=== PATIENT | female | born 1965 | race Caucasian/White ===

== ENCOUNTER 2017-01-14 00:53 | Inpatient (IN) | payer OTHER ==
[2017-01-14] VITALS (9 sets, daily range): BP systolic 103–119; BP diastolic 67–73; PULSE 69–90; RESP 17–20; Ht 172.7 cm; Wt 70.8 kg
[~2017-01-14] VITALS: Ht 172.7 cm; Wt 70.8 kg
[2017-01-14] MEDS ORDERED: FURO40TA4 PO (04:51)
[2017-01-14] MEDS ORDERED: SPIR100T31 PO (04:51)
[2017-01-14] MEDS ORDERED: LACT20SO2 PO (04:51)
--- NOTE | 2017-01-14 07:00 | HP ---
Date/Time of Note Date/Time of Note DATE: 01/14/17 TIME: 06:58 Assessment/Plan VTE Prophylaxis VTE Prophylaxis Intervention: SCD's Lines/Catheters IV Catheter Type (from Nrsg): Saline Lock Assessment/Plan Assessment/Plan abd pain and distention 2/2 large ascites Hep C / alcohol cirrhosis PLAN Urgent paracentesis and fluid analysis 2/2 pain Possible d/c after if analysis is negative supportive care and pain control HPI/ROS Admit Date/Time Admit Date/Time Jan 14, 2017 at 04:05 Hx of Present Illness abd pain and distention. Unclear if actual pain or just discomfort Has never had paracentesis before Diagnosed with liver cirrhosis a year ago remote hx of multisubstance abuse including IVDA, but drank alcohol and smoked heavily until diagnosis a year ago. still drinks ocassionally and now smokes a pack of cigarrettes over 2 weeks Also has Hep C and is scheduled to start treatment soon. No fever +nausea, no vomiting PMH/Family/Social Past Medical History * Hep C * Cirrhosis Social History Alcohol Use: other (was a heavy drinker, now occasionally) Smoking Status: Current every day smoker Drug Use: other (remotely) Exam/Review of Systems Vital Signs Vitals Vital Signs Date Time Temp Pulse Resp B/P Pulse Ox O2 Delivery O2 Flow Rate FiO2 01/14/17 04:30 90 01/14/17 04:00 97.8 20 103/69 92 Intake and Output 01/13/17 01/13/17 01/14/17 15:00 23:00 07:00 Intake Total 60 ml Balance 60 ml Exam Constitutional: alert, frail, oriented, other (cachectic ) Psych: nl mood/affect Head: atraumatic, normocephalic Eyes: PERRL, No icteric ENMT: mucosa pink and moist Neck: supple Respiratory: clear to auscultation, diminished breath sounds Cardiovascular: regular rate and rhythm, No murmurs/extra sounds Gastrointestinal: ascites, bowel sounds (distant), distended (++), soft, No rebound or guarding, No tender Extremities: pitting pedal edema (avis 2+ to mid leg) Procedures Procedures Platelets : 157 INR 1.28 MICHELLE ZUNIGA Jan 14, 2017 07:00
[2017-01-14] MEDS ORDERED: ONDANSETRON 4 MG INJ IV PRN (07:30)
[2017-01-14] MEDS ORDERED: HYDROCODONE/APAP (5/325) TAB PO PRN (07:30)
[2017-01-14] MEDS: FAMOTIDINE 20 MG TAB PO SCH ×2 (09:13→20:49)
[2017-01-14] MEDS: FUROSEMIDE 40 MG TAB PO SCH (09:14)
[2017-01-14] MEDS: SPIRONOLACTONE 50 MG TAB PO SCH (09:14)
[2017-01-14] MEDS: LACTULOSE 30ML CUP PO SCH ×4 (09:14→20:49)
[2017-01-14 09:21] LABS: INR 1.28; PROTIME 16.1 Sec (12.2-14.2); PT RATIO 1.3
[2017-01-14 09:22] LABS: PARTIAL THROMBOPLASTIN TIME 32.9 Sec (25.0-35.0)
[2017-01-14 11:05] LABS: CHOL/HDL RATIO 3.7 RATIO
[2017-01-14] MEDS: morphine 2 MG INJ IV PRN (11:15)
[2017-01-14 12:39] LABS: BASOPHILS % 0.7 % (0.0-2.0); EOSINOPHILS # 0.1 10^3/ul (0.0-0.5); EOSINOPHILS % 2.5 % (0.0-7.0); HEMATOCRIT 41.2 % (37.0-47.0); HEMOGLOBIN 13.9 g/dl (12.0-16.0); LYMPHOCYTES % 18.3 % (15.0-51.0); MEAN CORPUSCULAR HEMOGLOBIN 31.4 pg (29.0-33.0); MEAN CORPUSCULAR HGB CONC 33.7 g/dl (32.0-37.0); MEAN CORPUSCULAR VOLUME 93.2 fl (82.0-101.0); MEAN PLATELET VOLUME 10.8 fl (7.4-10.4); MONOCYTE # 0.7 10^3/ul (0.3-0.9); MONOCYTES % 11.5 % (0.0-11.0); PLATELET COUNT 150 10^3/UL (140-415); RED BLOOD COUNT 4.42 10^6/ul (4.20-5.40); RED CELL DISTRIBUTION WIDTH 16.5 % (11.5-14.5); WHITE BLOOD COUNT 5.6 10^3/ul (4.8-10.8)
[2017-01-14] MEDS ORDERED: LIDOCAINE 1% (MPF) 5 ML VIAL ONE (16:11)
--- NOTE | 2017-01-14 16:44 | RADRPT ---
PROCEDURE: Ultrasound guided paracentesis. CLINICAL INDICATION: Ascites and shortness of breath. COMPARISON: No prior studies are available for comparison. TECHNIQUE: The risks, benefits, and alternatives were explained to the patient and/or the patient's family, inc luding but not limited to bleeding, infection, pain, visceral or vascular damage, shock, and . The patient and/or the patient's family understood the risks and the alternatives and wished to pro ceed with the procedure. Informed written consent was obtained. A procedural time out was performed . The patient's name, date of , and procedure to be performed were verified. Utilizing ultrasound guidance, optimal location for entry to the peritoneal cavity was ascertained. The overlying skin was prepped and draped in the usual sterile fashion. Approximately 10 ml of 1% Xylocaine was injected locally for pain control. Using ultrasound guidance, an 8 Vincentian catheter wa s introduced into the peritoneal cavity in the right lower quadrant without difficulty. FINDINGS: Initial images demonstrate ascites. Approximately 3.9 liters of serous fluid was aspirated and sent for laboratory analysis. The patient tolerated the procedure well without complication. IMPRESSION: 1. Successful ultrasound-guided paracentesis. RPTAT: QQ .Carlitos Calle MD, Date Time Electronically viewed and signed by .Carlitos Calle MD, on 01/14/2017 16:44 .R/
[2017-01-14 19:51] LABS: FLD MN% 84.8 %; FLD PMN% 15.2 %; FLD RBC 0 /uL; FLD WBC 92 /cmm
[2017-01-14 20:39] LABS: FLD CLARITY CLEAR; FLD COLOR YELLOW; FLD TYPE ASCITES; PATH REVIEW? NO
[2017-01-15] VITALS (8 sets, daily range): BP systolic 107–133; BP diastolic 57–72; PULSE 71–78; RESP 18–19
[2017-01-15 08:15] LABS: BASOPHILS % 0.4 % (0.0-2.0); EOSINOPHILS # 0.2 10^3/ul (0.0-0.5); EOSINOPHILS % 3.1 % (0.0-7.0); HEMATOCRIT 36.8 % (37.0-47.0); HEMOGLOBIN 12.3 g/dl (12.0-16.0); LYMPHOCYTES # 0.8 10^3/ul (0.8-2.9); MEAN CORPUSCULAR HEMOGLOBIN 30.1 pg (29.0-33.0); MEAN CORPUSCULAR HGB CONC 33.4 g/dl (32.0-37.0); MEAN CORPUSCULAR VOLUME 90.2 fl (82.0-101.0); MEAN PLATELET VOLUME 10.8 fl (7.4-10.4); MONOCYTE # 0.7 10^3/ul (0.3-0.9); NEUTROPHILS % 67.3 % (39.0-77.0); PLATELET COUNT 123 10^3/UL (140-415); RED BLOOD COUNT 4.08 10^6/ul (4.20-5.40); RED CELL DISTRIBUTION WIDTH 16.1 % (11.5-14.5); WHITE BLOOD COUNT 5.1 10^3/ul (4.8-10.8)
[2017-01-15] MEDS: FAMOTIDINE 20 MG TAB PO SCH (08:32)
[2017-01-15] MEDS: LACTULOSE 30ML CUP PO SCH ×2 (08:32→12:26)
[2017-01-15] MEDS: SPIRONOLACTONE 50 MG TAB PO SCH (08:33)
[2017-01-15] MEDS: FUROSEMIDE 40 MG TAB PO SCH (08:33)
[2017-01-15 08:36] LABS: ALBUMIN 2.2 g/dl (3.3-4.9); ALBUMIN/GLOBULIN RATIO 0.66; BILIRUBIN,INDIRECT 0.9 mg/dl (0-1.1); BILIRUBIN,TOTAL 0.9 mg/dl (0.2-1.3); CALCIUM 8.1 mg/dl (8.4-10.2); CREATININE 1.11 mg/dl (0.44-1.00); POTASSIUM 4.5 mmol/L (3.5-5.1); TOTAL PROTEIN 5.5 g/dl (6.1-8.1)
[2017-01-15 09:14] LABS: MAGNESIUM 1.7 mg/dl (1.7-2.5); PHOSPHORUS 3.3 mg/dl (2.5-4.9)
[2017-01-15] MEDS: morphine 2 MG INJ IV PRN ×2 (09:29→13:35)
--- NOTE | 2017-01-15 10:38 | PDOCDIS ---
Discharge Instructions DIAGNOSIS Discharge Diagnosis Ascites. Status post paracentesis. CONDITION Patient Condition: Stable HOME CARE INSTRUCTIONS: Special Diet: 2GM NA OTHER ORDERS: Other Orders: 1. Resume home medications. 2. Take a low-sodium diet. 3. Activities as tolerated. 4. Follow-up with your primary care physician in 1 week. 5. Please go to the nearest emergency room if you have significant abdominal pain, significant shortness of breath, or any other unusual signs or symptoms. LATISHA MENDES NP Jan 15, 2017 10:38
--- NOTE | 2017-01-15 10:47 | DS ---
Date/Time of Note Date/Time of Note DATE: 01/15/17 TIME: 10:45 Discharge Summary Admission/Discharge Info Admit Date/Time Jan 14, 2017 at 04:05 Discharge Date/Time Discharge Diagnosis 1. Ascites. Status post paracentesis. 2. Alcoholic liver cirrhosis. 3. Hepatitis C. 4. Nicotine use. Patient Condition: Stable Procedures Ultrasound-Guided Paracentesis IMPRESSION: 1. Successful ultrasound-guided paracentesis with drainage of 3.9 L of fluid. Hx of Present Illness This is a 51-year-old female who was diagnosed with alcoholic liver cirrhosis approximately an year ago came to the emergency room with chief complaint of abdominal pain and distention. The patient denied any prior paracentesis in the past. The patient initially went to an outside ER and was transferred to [facility] because of insurance reasons. Patient denied any nausea or vomiting. Hospital Course The patient was admitted to inpatient setting. The patient underwent a paracentesis with drainage of 3.9 L of serous fluid. The patient's fluid analysis did not show any evidence of any peritonitis. The patient had no underlying leukocytosis or febrile illness. The patient was maintained on her routine medications including diuretics and aldosterone antagonists along with lactulose. Patient had elevated ammonia levels but not significant enough to cause any underlying encephalopathy. The patient's abdominal pain has resolved after paracentesis. The patient is stable for outpatient management. The patient will be discharged home to be followed up with her primary care physician. Discharge Instructions 1. Resume home medications. 2. Take a low-sodium diet. 3. Activities as tolerated. 4. Follow-up with your primary care physician in 1 week. 5. Please go to the nearest emergency room if you have significant abdominal pain, significant shortness of breath, or any other unusual signs or symptoms. The patient verbalized understanding of her discharge instructions. The case and management of this patient was fully discussed with Dr. Estrella. Home Meds Reported Medications Lactulose* (Lactulose*) 20 Gm/30 Ml Solution, 20 GM PO QID, ML 01/14/17 Spironolactone* (Spironolactone*) 100 Mg Tablet, 100 MG PO DAILY, TAB 01/14/17 Furosemide* (Furosemide*) 40 Mg Tablet, 40 MG PO DAILY, TAB 01/14/17 Follow-up Plan Follow-up with your primary care physician 1 week. Primary Care Provider Janki Ramos Time spent on discharge: > 30 minutes Pending Labs Laboratory Tests Test 01/14/17 16:00 01/15/17 07:34 01/15/17 07:35 Pathologist Review (Hematology) NO Body Fluid Type ASCITES Body Fluid Volume 1100.0ml Body Fluid Color YELLOW Body Fluid Appearance CLEAR Body Fluid WBC 92/cmm Body Fluid RBC (Auto) 0/uL Body Fluid Polynuclear WBCs (%) 15.2% Body Fluid Mononuclear Cells % Auto 84.8% White Blood Count 5.110^3/ul (4.8-10.8) Red Blood Count 4.0810^6/ul (4.20-5.40) Hemoglobin 12.3g/dl (12.0-16.0) Hematocrit 36.8% (37.0-47.0) Mean Corpuscular Volume 90.2fl (82.0-101.0) Mean Corpuscular Hemoglobin 30.1pg (29.0-33.0) Mean Corpuscular Hemoglobin Concent 33.4g/dl (32.0-37.0) Red Cell Distribution Width 16.1% (11.5-14.5) Platelet Count 46668^3/UL (140-415) Mean Platelet Volume 10.8fl (7.4-10.4) Neutrophils % 67.3% (39.0-77.0) Lymphocytes % 15.0% (15.0-51.0) Monocytes % 14.0% (0.0-11.0) Eosinophils % 3.1% (0.0-7.0) Basophils % 0.4% (0.0-2.0) Nucleated Red Blood Cells % 0.0/100WBC (0.0-0.0) Neutrophils # (Manual) 310^3/ul (1.7-7.5) Lymphocytes # 0.810^3/ul (0.8-2.9) Monocytes # 0.710^3/ul (0.3-0.9) Eosinophils # 0.210^3/ul (0.0-0.5) Basophils # 0.010^3/ul (0.0-0.1) Nucleated Red Blood Cells # 0.010^3/ul (0.0-0.0) Sodium Level 136mmol/L (135-144) Potassium Level 4.5mmol/L (3.5-5.1) Chloride Level 96mmol/L (97-110) Carbon Dioxide Level 28mmol/L (21-31) Anion Gap 17 (8-16) Blood Urea Nitrogen 19mg/dl (7-20) Creatinine 1.11mg/dl (0.44-1.00) Glucose Level 94mg/dl (70-220) Calcium Level 8.1mg/dl (8.4-10.2) Phosphorus Level 3.3mg/dl (2.5-4.9) Magnesium Level 1.7mg/dl (1.7-2.5) Total Bilirubin 0.9mg/dl (0.2-1.3) Direct Bilirubin 0.00mg/dl (0.00-0.20) Indirect Bilirubin 0.9mg/dl (0-1.1) Aspartate Amino Transf (AST/SGOT) 42IU/L (15-46) Alanine Aminotransferase (ALT/SGPT) 44IU/L (13-69) Alkaline Phosphatase 108IU/L (42-121) Ammonia 57umol/l (9-30) Total Protein 5.5g/dl (6.1-8.1) Albumin 2.2g/dl (3.3-4.9) Globulin 3.30g/dl (1.3-3.2) Albumin/Globulin Ratio 0.66 Lipase 265U/L (23-300) LATISHA MENDES NP Jan 15, 2017 10:47
== END 2017-01-15 14:45 | disposition home or self-care (01) | DRG 434 ==
LOC: MS4 04:05
PROVIDERS: ADMIT Family Medicine; ATTEND Family Medicine
PROC: 0W9G3ZZ Drainage of Peritoneal Cavity, Percutaneous Approach (ICD-10-PCS; principal; 2017-01-14)
DX: K70.31 Alcoholic cirrhosis of liver with ascites (principal); B19.20 Unspecified viral hepatitis C without hepatic coma; F17.200 Nicotine dependence, unspecified, uncomplicated
CPT/HCPCS: 80053; 80061; 82140; 83036; 83690; 83735; 84100; 84443; 85025; 85610; 85730; 89051; J2270

== ENCOUNTER 2017-01-27 19:34 | Observation (INO) | payer OTHER ==
[~2017-01-27] VITALS: Ht 172.7 cm; Wt 66.4 kg
[~2017-01-27 19:34] MED LIST: FURO40TA4 PO; LACT20SO2 PO; SPIR100T31 PO
[2017-01-27] MEDS ORDERED: ONDANSETRON 4 MG INJ IV STA (23:47)
[2017-01-27] MEDS ORDERED: morphine 4 MG/ML VIAL IV STA (23:47)
[2017-01-28] VITALS (11 sets, daily range): BP systolic 97–113; BP diastolic 64–76; PULSE 74–93; RESP 16–20; TEMP 98.5; Ht 172.7 cm; Wt 66.4 kg
[2017-01-28 00:01] LABS: BASOPHILS % 0.5 % (0.0-2.0); EOSINOPHILS % 0.3 % (0.0-7.0); HEMATOCRIT 43.6 % (37.0-47.0); LYMPHOCYTES # 1.1 10^3/ul (0.8-2.9); LYMPHOCYTES % 15.2 % (15.0-51.0); MEAN CORPUSCULAR HEMOGLOBIN 31.3 pg (29.0-33.0); MEAN CORPUSCULAR HGB CONC 34.4 g/dl (32.0-37.0); MEAN PLATELET VOLUME 10.3 fl (7.4-10.4); MONOCYTE # 0.7 10^3/ul (0.3-0.9); MONOCYTES % 9.8 % (0.0-11.0); NEUTROPHILS % 73.7 % (39.0-77.0); PLATELET COUNT 173 10^3/UL (140-415); RED BLOOD COUNT 4.79 10^6/ul (4.20-5.40); RED CELL DISTRIBUTION WIDTH 16.1 % (11.5-14.5); WHITE BLOOD COUNT 7.4 10^3/ul (4.8-10.8)
[2017-01-28 00:21] LABS: ALBUMIN 3.3 g/dl (3.3-4.9); ALBUMIN/GLOBULIN RATIO 0.78; BILIRUBIN,INDIRECT 2.4 mg/dl (0-1.1); BILIRUBIN,TOTAL 2.4 mg/dl (0.2-1.3); CALCIUM 8.6 mg/dl (8.4-10.2); CREATININE 0.88 mg/dl (0.44-1.00); POTASSIUM 3.8 mmol/L (3.5-5.1); TOTAL PROTEIN 7.5 g/dl (6.1-8.1)
[2017-01-28 00:36] LABS: INR 1.18; PARTIAL THROMBOPLASTIN TIME 31.8 Sec (25.0-35.0); PROTIME 15.1 Sec (12.2-14.2); PT RATIO 1.2
--- NOTE | 2017-01-28 01:49 | ERA ---
ER Documentation Chief Complaint Date/Time DATE: 01/28/17 TIME: 01:48 Chief Complaint Pt reports she needs paracentisis, drained 10 days ago HPI This is a 51-year-old female who comes in with complaints of severe abdominal swelling. Patient history of cirrhosis. Last drained 10 days ago. States she sees starting him mildly short of breath. ROS All systems reviewed and are negative except as per history of present illness. Medications Home Meds Reported Medications Lactulose* (Lactulose*) 20 Gm/30 Ml Solution, 20 GM PO QID, ML 01/14/17 Spironolactone* (Spironolactone*) 100 Mg Tablet, 100 MG PO DAILY, TAB 01/14/17 Furosemide* (Furosemide*) 40 Mg Tablet, 40 MG PO DAILY, TAB 01/14/17 Allergies Allergies: Coded Allergies: No Known Allergy (Unverified , 01/14/17) PMhx/Soc Anesthesia Reaction: No Hx Neurological Disorder: No Hx Respiratory Disorders: No Hx Cardiac Disorders: No Hx Psychiatric Problems: Yes (Bipolar) Hx Miscellaneous Medical Probl: Yes (Liver cirrhosis, Hepatitis C) Hx Alcohol Use: Yes ([employer] ice tea. (gin, vodka, rum).) Hx Substance Use: Yes Hx Tobacco Use: Yes Smoking Status: Current every day smoker Physical Exam Vitals Vital Signs Date Time Temp Pulse Resp B/P Pulse Ox O2 Delivery O2 Flow Rate FiO2 01/28/17 00:03 98.5 91 18 142/79 97 Room Air 01/27/17 19:38 98.5 108 18 135/84 97 Physical Exam Const: [] Head: Atraumatic Eyes: Normal Conjunctiva ENT: Normal External Ears, Nose and Mouth. Neck: Full range of motion..~ No meningismus. Resp: Clear to auscultation bilaterally Cardio: Regular rate and rhythm, no murmurs Abd: Soft, non tender, non distended. Normal bowel sounds Skin: No petechiae or rashes Back: No midline or flank tenderness Ext: No cyanosis, or edema Neur: Awake and alert Psych: Normal Mood and Affect Result Diagram: 01/27/17 5929 01/27/17 9989 Results 24 hrs Laboratory Tests Test 01/27/17 23:49 White Blood Count 7.410^3/ul Red Blood Count 4.7910^6/ul Hemoglobin 15.0g/dl Hematocrit 43.6% Mean Corpuscular Volume 91.0fl Mean Corpuscular Hemoglobin 31.3pg Mean Corpuscular Hemoglobin Concent 34.4g/dl Red Cell Distribution Width 16.1% Platelet Count 36296^3/UL Mean Platelet Volume 10.3fl Neutrophils % 73.7% Lymphocytes % 15.2% Monocytes % 9.8% Eosinophils % 0.3% Basophils % 0.5% Nucleated Red Blood Cells % 0.0/100WBC Neutrophils # (Manual) 5.410^3/ul Lymphocytes # 1.110^3/ul Monocytes # 0.710^3/ul Eosinophils # 0.010^3/ul Basophils # 0.010^3/ul Nucleated Red Blood Cells # 0.010^3/ul Prothrombin Time 15.1Sec Prothrombin Time Ratio 1.2 INR International Normalized Ratio 1.18 Activated Partial Thromboplast Time 31.8Sec Sodium Level 132mmol/L Potassium Level 3.8mmol/L Chloride Level 95mmol/L Carbon Dioxide Level 28mmol/L Anion Gap 13 Blood Urea Nitrogen 13mg/dl Creatinine 0.88mg/dl Glucose Level 90mg/dl Calcium Level 8.6mg/dl Total Bilirubin 2.4mg/dl Direct Bilirubin 0.00mg/dl Indirect Bilirubin 2.4mg/dl Aspartate Amino Transf (AST/SGOT) 65IU/L Alanine Aminotransferase (ALT/SGPT) 52IU/L Alkaline Phosphatase 179IU/L Total Protein 7.5g/dl Albumin 3.3g/dl Globulin 4.20g/dl Albumin/Globulin Ratio 0.78 Lipase 158U/L Current Medications Medications (Trade) Dose Ordered Sig/Charles Route PRN Reason Start Time Stop Time Status Last Admin Dose Admin Morphine Sulfate (morphine) 4 mg ONCE STAT IV 01/27/17 23:47 01/27/17 23:48 DC 01/27/17 23:57 Ondansetron HCl (Zofran Inj) 4 mg ONCE STAT IV 01/27/17 23:47 01/27/17 23:48 DC 01/27/17 23:59 Procedures/MDM Medical decision-making: Patient comes in with tense ascites. Patient will be admitted for paracentesis and evaluation and management Departure Diagnosis: Primary Impression: Ascites Qualified Code: K70.31 - Ascites due to alcoholic cirrhosis Condition: Serious AGNES NASH Jan 28, 2017 01:49
[2017-01-28] MEDS ORDERED: NACL 0.9% 3 ML SYG IV SCH (02:30)
[2017-01-28] MEDS ORDERED: ONDANSETRON 4 MG INJ IV PRN (02:30)
[2017-01-28] MEDS ORDERED: ACETAMINOPHEN 325 MG TAB PO PRN (02:30)
[2017-01-28] MEDS ORDERED: DOCUSATE SODIUM 100 MG CAP PO PRN (02:30)
[2017-01-28] MEDS ORDERED: BISACODYL (EC) 5 MG TAB PO PRN (02:30)
[2017-01-28] MEDS: FUROSEMIDE 40 MG TAB PO SCH (06:00)
[2017-01-28] MEDS: morphine 2 MG INJ IV PRN (07:40)
[2017-01-28] MEDS: LACTULOSE 30ML CUP PO SCH ×4 (08:27→20:49)
[2017-01-28] MEDS: FAMOTIDINE 20 MG TAB PO SCH ×2 (08:27→20:49)
[2017-01-28] MEDS: SPIRONOLACTONE 50 MG TAB PO SCH (09:00)
--- NOTE | 2017-01-28 09:53 | HP ---
Date/Time of Note Date/Time of Note DATE: 01/28/17 TIME: 09:46 Assessment/Plan VTE Prophylaxis VTE Prophylaxis Intervention: SCD's Lines/Catheters IV [facility] Saline Lock Assessment/Plan Chief Complaint/Hosp Course This is a 51-year-old female being admitted to the [facility] floor for: #1 symptomatic ascites: Last paracentesis performed approximately 2 weeks ago. Low suspicion for SBP as normal white blood cell count and no fevers. Will schedule ultrasound paracentesis via IR. #2 liver cirrhosis: We will check ammonia level. At the current time patient does not appear to be in any acute decompensation. Will continue lactulose Lasix and spironolactone. Will check blood alcohol level. #3 hepatitis C: Patient states that she is to be starting treatment as an outpatient. #4 DVT GI prophylaxis: SCDs, acid destinee Further treatment strategy will be implemented as per the course Problems: HPI/ROS Admit Date/Time Admit Date/Time Jan 28, 2017 at 01:40 Hx of Present Illness Chief complaint: Abdominal fullness and fluid retention This is a 51 oh female who comes in today complaining of abdominal pain and fullness and fluid retention. Patient states that she last had a tap approximately 2 weeks ago. She states that she has a history of cirrhosis and hepatitis C. She denies any fevers. Allergies: NKDA Medications: See LISSETTE ARMAS Const: As per HPI Eyes : No pain discharge or redness or change in visual acuity ENT: No pain, sore throat, congestion, congestion, dysphagia or discharge Respiratory: No shortness of breath, cough, sputum, wheezing, or pleuritic pain Cardiovascular: No chest pain, palpitation, PND, or edema GI : As per HPI Genitourinary: No dysuria, hematuria, flank pain , discharge or CVA tenderness Musculoskeletal: No joint pain, back pain, neck pain, restricted range of motion in neck or joints Skin: No rash, bruising or hives Neuro: No headache, dizziness, syncope, seizure, focal weakness Endocrine: No polyuria, polydipsia, temperature intolerance Psych: No hallucination, depression, anxiety or suicidal ideation PMH/Family/Social Past Medical History Hepatitis C, liver cirrhosis Past Surgical History Past Surgical Hx: no surgical history Family History Significant Family History: no pertinent family hx Social History still drinks ocassionally, but less from when she did a year ago prior to finding out about her cirrhosis. and now smokes a pack of cigarrettes over 2 weeks Smoking Status: Current every day smoker Exam/Review of Systems Vital Signs Vitals Vital Signs Date Time Temp Pulse Resp B/P Pulse Ox O2 Delivery O2 Flow Rate FiO2 01/28/17 07:34 97.8 84 16 98/70 95 01/28/17 05:50 Room Air Exam Exam General: Patient is a well-developed female lying in bed in no acute distress. Patient is alert and oriented answering questions appropriately. HEENT: Atraumatic, normocephalic. The pupils are equal, round and reactive. Extraocular motor are intact Neck: Supple with full range of motion. No rigidity or meningismus Chest: Nontender Lungs: Clear to auscultation bilaterally no crackles rales or wheezing Heart: Normal S1-S2, Regular rhythm and rate. No murmur, S3, or S4 Abdomen: Distended, positive fluid wave, mild tenderness to palpation. Extremities: Normal to inspection, no edema no cyanosis Neurologic: Normal mental status, speech normal, cranial nerves II through XII are intact, motor and sensory are intact, no focal weakness, she does not appear confused, no asterixis. Labs Result Diagram: 01/27/17 2349 01/27/17 2349 Medications Medications Current Medications Ondansetron HCl (Zofran Inj) 4 mg Q6H PRN IV NAUSEA AND/OR VOMITING; Start 01/28 at 02:30 Acetaminophen (Tylenol Tab) 650 mg Q6H PRN PO PAIN LEVEL 1-3 OR FEVER; Start at 02:30 Morphine Sulfate (morphine) 2 mg Q4H PRN IV SEVERE PAIN LEVEL 7-10 Last administered on 01/28/17 07:40; Admin Dose 2 MG; Start 01/28/17 at 02:30 Docusate Sodium (Colace) 100 mg Q12H PRN PO CONSTIPATION; Start 01/28/17 at 02: 30 Bisacodyl (Dulcolax) 5 mg DAILY PRN PO CONSTIPATION; Start 01/28/17 at 02:30 Famotidine (Pepcid) 20 mg Q12 PO Last administered on 01/28/17 08:27; Admin Dose 20 MG; Start 01/28/17 at 09:00 Furosemide (Lasix) 40 mg DAILY@06 PO ; Start 01/28/17 at 06:00 Lactulose (Enulose) 20 gm QID PO Last administered on 01/28/17t 08:27; Admin Dose 20 GM; Start 01/28/17 at 09:00 Spironolactone (Aldactone) 100 mg DAILY PO ; Start 01/28/17 at 09:00 LIZ BERRY Jan 28, 2017 09:53
[2017-01-28] MEDS ORDERED: LIDOCAINE 1% (MPF) 5 ML VIAL ONE (10:58)
--- NOTE | 2017-01-28 11:27 | RADRPT ---
PROCEDURE: Ultrasound guided paracentesis CLINICAL INDICATION: Ascites TECHNIQUE: Risks benefits and alternatives of the procedure were explained to the patient. Inform ed written consent was obtained. A time out was performed. Informed written consent was obtained p rior to beginning the procedure. Preliminary floor covering printer ultrasound of the abdomen was performed. Fluid was identified in the lower quadrant. The overlying skin of the right lower quadrant was prepped an d draped in the usual sterile fashion. 5 cc of lidocaine was injected locally for pain control. Und er ultrasound guidance, a skinny 5-[place] Yueh catheter was introduced into the peritoneal cavity. F luid was obtained without difficulty. The fluid was discarded. The patient tolerated procedure well without complication. COMPARISON: None FINDINGS: Approximately 4700 cc of clear light yellow fluid was obtained. The fluid was not sent to the labor atory for evaluation. IMPRESSION: Successful ultrasound-guided therapeutic paracentesis. RPTAT: QQ Physician Edvin Date Time Electronically viewed and signed by Physician Edvin on 01/28/2017 11:26 JOANNA/
[2017-01-28 14:25] LABS: BASOPHILS % 0.4 % (0.0-2.0); EOSINOPHILS # 0.1 10^3/ul (0.0-0.5); EOSINOPHILS % 2.7 % (0.0-7.0); LYMPHOCYTES # 0.7 10^3/ul (0.8-2.9); LYMPHOCYTES % 13.3 % (15.0-51.0); MEAN CORPUSCULAR HEMOGLOBIN 31.3 pg (29.0-33.0); MEAN CORPUSCULAR HGB CONC 34.2 g/dl (32.0-37.0); MEAN CORPUSCULAR VOLUME 91.6 fl (82.0-101.0); MEAN PLATELET VOLUME 10.2 fl (7.4-10.4); MONOCYTE # 0.7 10^3/ul (0.3-0.9); MONOCYTES % 13.3 % (0.0-11.0); NEUTROPHILS % 69.9 % (39.0-77.0); PLATELET COUNT 134 10^3/UL (140-415); RED BLOOD COUNT 4.15 10^6/ul (4.20-5.40); RED CELL DISTRIBUTION WIDTH 16.1 % (11.5-14.5); WHITE BLOOD COUNT 5.2 10^3/ul (4.8-10.8)
[2017-01-28 14:47] LABS: CHOL/HDL RATIO 3.5 RATIO
[2017-01-28 14:48] LABS: ALBUMIN 2.5 g/dl (3.3-4.9); ALBUMIN/GLOBULIN RATIO 0.73; BILIRUBIN,INDIRECT 1.5 mg/dl (0-1.1); BILIRUBIN,TOTAL 1.5 mg/dl (0.2-1.3); CALCIUM 7.9 mg/dl (8.4-10.2); CREATININE 0.82 mg/dl (0.44-1.00); POTASSIUM 3.8 mmol/L (3.5-5.1); TOTAL PROTEIN 5.9 g/dl (6.1-8.1)
[2017-01-29 02:00] VITALS: BP 108/54; RESP 18
[2017-01-29 05:01] VITALS: BP 105/69; PULSE 85
[2017-01-29] MEDS: FUROSEMIDE 40 MG TAB PO SCH (05:03)
[2017-01-29 06:08] LABS: FREE T3 3.56 pg/ml (2.77-5.27)
[2017-01-29 06:21] LABS: TRIIODOTHYRONINE 0.77 ng/ml (0.97-1.69)
[2017-01-29 07:57] VITALS: BP 93/63; RESP 20
[2017-01-29] MEDS: LACTULOSE 30ML CUP PO SCH ×3 (09:59→18:36)
[2017-01-29] MEDS: SPIRONOLACTONE 50 MG TAB PO SCH (10:00)
[2017-01-29] MEDS: FAMOTIDINE 20 MG TAB PO SCH (10:00)
[2017-01-29 10:10] LABS: CALCIUM 7.8 mg/dl (8.4-10.2); CREATININE 0.78 mg/dl (0.44-1.00); POTASSIUM 3.9 mmol/L (3.5-5.1)
--- NOTE | 2017-01-29 10:24 | PDOCDIS ---
Discharge Instructions CONDITION Patient Condition: Stable HOME CARE INSTRUCTIONS: Diet Instructions: 2gm Na FOLLOW UP/APPOINTMENTS Follow-up Plan 1.Follow up with primary care physician in 1 week-needs thyroid function test to be repeated in 2-4 weeks. If you don't have one please let someone know, we can give you resources that may help you pick one. You may also call your insurance company to assign one to you. Review your medication list with your nurse before leaving and if you need new prescriptions please let your nurse know. I may have made changes to your home medications or given you new prescriptions, please let your primary doctor know as well. Stay compliant with your medications and report any side effects to your PCP or pharmacist. Return to the ER if you have any concerns and cannot reach your doctors or call your insurance company, they usually have a nurse that can help you. 2. Call 911 or go to the nearest emergency room if experiencing loss of consciousness, dizziness, chest pain, shortness of breath, vomiting/abdominal pain, speech difficulties, motor weakness or any unusual symptoms. VARSHA DANIELS NP Jan 29, 2017 10:24
[2017-01-29] MEDS ORDERED: LACT20SO2 PO (10:27)
[2017-01-29] MEDS: morphine 2 MG INJ IV PRN ×2 (12:54→18:39)
--- NOTE | 2017-01-29 14:38 | DS ---
Date/Time of Note Date/Time of Note DATE: 01/29/17 TIME: 14:36 Discharge Summary Admission/Discharge Info Admit Date/Time Jan 28, 2017 at 01:40 Discharge Date/Time Discharge Diagnosis Liver cirrhosis ascites. Status post paracentesis. Hepatitis C-start treatment as outpatient with Dilutional hyponatremia. Stable Elevated TSH and normal T4. Needs repeat labs in 2 weeks. Patient Condition: Stable Procedures 01/28/2017. Ultrasound-guided paracentesis. Removal of 4700 clear yellow fluids. Hospital Course This is a 51-year-old female with a past medical history of hepatitis C for which she is to be started on treatment as outpatient, liver cirrhosis, ascites with paracentesis in the past, who presented to the emergency room with worsening abdominal pain with distention. Patient also had mildly mild hyponatremia on presentation. Patient was admitted for observation. On 01/28/2017, patient had undergone successful ultrasound-guided therapeutic paracentesis with removal of 4700 mL of light yellow fluid. Patient tolerated procedure well. Postoperatively, she was started on postprocedure, she was started on a 2 g sodium diet which she was able to tolerate. She was continued on her home medication for underlying liver disease. There is no further inpatient workup indicated at this time. Patient is feeling back to baseline. Sodium level remained at baseline. There is no further abdominal pain. Distention also improved. Disposition: Patient will be discharged home with outpatient follow-up. Patient was instructed to continue home medication. I also recommended to decrease the dose of lactulose which she takes at home as her ammonia levels are perfectly normal and there is no encephalopathy. She was also noted with elevated TSH with normal T4 level. She was instructed to repeat her thyroid function test in 2 weeks as outpatient. Patient verbalized discharge instructions. Approximately 60 minutes was spent in coordinating the discharge of this patient. Patient was seen in collaboration with . Home Meds Active Scripts Lactulose* (Lactulose*) 20 Gm/30 Ml Solution, 20 GM PO BID, #60 ML Prov:VARSHA DANIELS V. FUNERAL DIRECTOR 01/29/17 Reported Medications Spironolactone* (Spironolactone*) 100 Mg Tablet, 100 MG PO DAILY, TAB 01/14/17 Furosemide* (Furosemide*) 40 Mg Tablet, 40 MG PO DAILY, TAB 01/14/17 Follow-up Plan HOME CARE INSTRUCTIONS: Diet Instructions: 2gm Na FOLLOW UP/APPOINTMENTS Follow-up Plan 1.Follow up with primary care physician in 1 week-needs thyroid function test to be repeated in 2-4 weeks. If you don't have one please let someone know, we can give you resources that may help you pick one. You may also call your insurance company to assign one to you. Review your medication list with your nurse before leaving and if you need new prescriptions please let your nurse know. I may have made changes to your home medications or given you new prescriptions, please let your primary doctor know as well. Stay compliant with your medications and report any side effects to your PCP or pharmacist. Return to the ER if you have any concerns and cannot reach your doctors or call your insurance company, they usually have a nurse that can help you. 2. Call 911 or go to the nearest emergency room if experiencing loss of consciousness, dizziness, chest pain, shortness of breath, vomiting/abdominal pain, speech difficulties, motor weakness or any unusual symptoms. Primary Care Provider Janki Ramos Pending Labs Laboratory Tests Test 01/29/17 04:59 Sodium Level 130mmol/L (135-144) Potassium Level 3.9mmol/L (3.5-5.1) Chloride Level 99mmol/L (97-110) Carbon Dioxide Level 26mmol/L (21-31) Anion Gap 9 (8-16) Blood Urea Nitrogen 13mg/dl (7-20) Creatinine 0.78mg/dl (0.44-1.00) Glucose Level 99mg/dl (70-220) Calcium Level 7.8mg/dl (8.4-10.2) Free Thyroxine 1.49ng/dl (0.64-1.79) Thyroxine (T4) 9.8ug/dl (5.5-11.0) Free Triiodothyronine (T3) pg/mL 3.56pg/ml (2.77-5.27) Total Triiodothyronine 0.77ng/ml (0.97-1.69) VARSHA DANIELS NP Jan 29, 2017 14:38
[2017-01-29 14:44] VITALS: BP 111/71; RESP 18
== END 2017-01-29 20:53 | disposition home or self-care (01) ==
LOC: E/R 19:34 → MS1 01-28 01:40
PROVIDERS: ADMIT Family Medicine; ATTEND Family Medicine
DX: K70.31 Alcoholic cirrhosis of liver with ascites (principal); B19.20 Unspecified viral hepatitis C without hepatic coma; E87.1 Hypo-osmolality and hyponatremia; F17.200 Nicotine dependence, unspecified, uncomplicated
CPT/HCPCS: 36415; 49083; 80048; 80053; 80061; 80306; 82140; 83036; 83690; 83735; 84436; 84439; 84443; 84480; 84481; 85025; 85610; 85730; 96374; 96375; 96376; J2270; J2405; Z7500; Z7502; Z7610; G0378

== ENCOUNTER 2017-02-05 14:22 | Emergency (ER) | payer OTHER ==
[~2017-02-05] VITALS: Ht 170.2 cm; Wt 68.0 kg
[2017-02-05 14:48] VITALS: Ht 170.2 cm; Wt 68.0 kg
[2017-02-05 20:44] VITALS: BP 135/81; PULSE 89; RESP 19; TEMP 98
--- NOTE | 2017-02-05 22:07 | ERA ---
ER Documentation Chief Complaint Date/Time DATE: 02/05/17 TIME: 22:05 Chief Complaint ABDOMINAL DISTENTION - FORM PARACENTESIS HPI The patient is a 51-year-old female, presenting with recurrent abdominal distention and requesting abdominal paracentesis. She had abdominal paracentesis on December 25, 2016 and again on January 29, 2017 due to cirrhosis. She denies fever, chills, neck pain, chest pain, abdominal pain, vomiting, complains of chronic bilateral lower extremity edema. She denies fever smokes socially, used to drink until February 2060 Past medical history: Bipolar disorder, cirrhosis, hepatitis C Past surgical history: None ROS All systems reviewed and are negative except as per history of present illness. Medications Home Meds Active Scripts Lactulose* (Lactulose*) 20 Gm/30 Ml Solution, 20 GM PO BID, #60 ML Prov:DANIELSVARSHA V. HISTOLOGY SPECIALIST 01/29/17 Reported Medications Spironolactone* (Spironolactone*) 100 Mg Tablet, 100 MG PO DAILY, TAB 01/14/17 Furosemide* (Furosemide*) 40 Mg Tablet, 40 MG PO DAILY, TAB 01/14/17 Allergies Allergies: Coded Allergies: No Known Allergy (Unverified , 01/14/17) PMhx/Soc History of Surgery: No Anesthesia Reaction: No Hx Neurological Disorder: No Hx Respiratory Disorders: No Hx Cardiac Disorders: Yes (CHF?) Hx Psychiatric Problems: Yes (BIPOLAR) Hx Miscellaneous Medical Probl: Yes (liver cirrhosis -paracentesis 01/14/17, Hep. C) Hx Alcohol Use: Yes ([facility] November 2016) Hx Substance Use: No Hx Tobacco Use: Yes (cigarette 2sticks/day 01/26/17) Smoking Status: Current every day smoker Physical Exam Vitals Vital Signs Date Time Temp Pulse Resp B/P Pulse Ox O2 Delivery O2 Flow Rate FiO2 02/05/17 20:44 98.0 89 19 135/81 100 Room Air 02/05/17 14:48 98.0 97 19 128/74 100 Physical Exam Const: No acute distress. Head: Atraumatic. Eyes: Normal Conjunctiva. ENT: Normal External Ears, Nose and Mouth. Neck: Full range of motion. No meningismus. Resp: Clear to auscultation bilaterally. Cardio: Regular rate and rhythm. Abd: Soft, Ascites, normal bowel sounds, non tender. Skin: No petechiae or rashes. Back: No midline or flank tenderness. Ext: Bilateral leg edema, no calf tenderness Neur: Awake and alert. No focal deficit Psych: Normal Mood and Affect. Procedures/MDM MEDICAL MAKING DECISION: The patient is a 51-year-old female, presenting with recurrent abdominal percent ascites. She does not have any evidence of spontaneous bacterial peritonitis. She is stable for returning in the morning for paracentesis by radiologist under ultrasound guidance The differential diagnoses considered include but are not limited to cholelithiasis, cholecystitis, cystitis, pancreatitis, hepatitis, gastritis, peptic ulcer disease, gastric ulcer, appendicitis, diverticulitis, cholangitis, choledocholithiasis, partial small bowel obstruction. Departure Diagnosis: Primary Impression: Ascites Condition: Good Comments She was advised to return in the morning for abdominal paracentesis by radiology KELLY YANCEY MD Feb 05, 2017 22:07
== END 2017-02-05 22:30 | disposition home or self-care (01) ==
LOC: E/R 14:22
DX: R18.8 Other ascites (principal); F17.210 Nicotine dependence, cigarettes, uncomplicated
CPT/HCPCS: 99282

== ENCOUNTER 2017-02-06 08:08 | Emergency (ER) | payer OTHER ==
[~2017-02-06] VITALS: Wt 70.0 kg
--- NOTE | 2017-02-06 09:12 | ERD ---
ER Documentation Chief Complaint Date/Time DATE: 02/06/17 TIME: 09:09 Chief Complaint ABD SWELLING SENT FOR PARACENTISIS HPI This is a very pleasant 51-year-old female history of alcoholic cirrhosis and ascites who was sent to the emergency room for paracentesis. The patient describes abdominal bloating and swelling without pain. She also describes bilateral lower extremity edema that is moderate. No fevers or chills no chest pain or shortness of breath. ROS All systems reviewed and are negative except as per history of present illness. Medications Home Meds Active Scripts Lactulose* (Lactulose*) 20 Gm/30 Ml Solution, 20 GM PO BID, #60 ML Prov:VARSHA DANIELS [employer] FOREIGN BANKNOTE TELLER 01/29/17 Reported Medications Spironolactone* (Spironolactone*) 100 Mg Tablet, 100 MG PO DAILY, TAB 01/14/17 Furosemide* (Furosemide*) 40 Mg Tablet, 40 MG PO DAILY, TAB 01/14/17 Allergies Allergies: Coded Allergies: No Known Allergy (Unverified , 01/14/17) PMhx/Soc History of Surgery: No Anesthesia Reaction: No Hx Neurological Disorder: No Hx Respiratory Disorders: No Hx Cardiac Disorders: Yes (CHF?) Hx Psychiatric Problems: Yes (BIPOLAR) Hx Miscellaneous Medical Probl: Yes (liver cirrhosis -paracentesis 01/14/17, Hep. C) Hx Alcohol Use: Yes (formerly [facility] November 2016) Hx Substance Use: No Hx Tobacco Use: Yes (cigarette 2sticks/day 01/26/17) Smoking Status: Current every day smoker FmHx Family History: No diabetes Physical Exam Vitals Vital Signs Date Time Temp Pulse Resp B/P Pulse Ox O2 Delivery O2 Flow Rate FiO2 02/06/17 09:15 98.3 74 16 128/72 99 Room Air 02/06/17 08:11 98.1 104 17 131/63 99 Physical Exam General: Well developed, well nourished, no acute distress Head: Normocephalic, atraumatic Eyes: Pupils equally reactive, EOM intact ENT: Moist mucous membranes Neck: Supple, no lymphadenopathy Respiratory: Lungs clear bilaterally, no distress Cardiovascular: RRR, no murmurs, rubs, or gallops Abdominal: Soft, protuberant with ascites and fluid wave, non-tender, non- distended, no peritoneal signs : Deferred MSK: 2+ pitting bilateral edema, no unilateral swelling, 5/5 strength Neurologic: Alert and oriented, moving all extremities, normal speech, no focal weakness, no cerebellar signs Skin: No rash Psych: Normal mood Procedures/MDM EKG, MONITORS, & DIAGNOSTIC IMAGING: Interventional radiologist could not find an accurate pocket for paracentesis. Unable to perform paracentesis LAB INTERPRETATION: Prior labs reviewed, no significant coagulopathy MEDICAL DECISION MAKING: The patient presents with abdominal ascites likely secondary to cirrhosis. Patient does not exhibit any signs or symptoms concerning for complications of cirrhosis such as GI bleed, hepatic encephalopathy or spontaneous bacterial peritonitis. There is no indication currently for diagnostic paracentesis. The patient will benefit from large volume therapeutic paracentesis by interventional radiology. If the patient remains stable without evidence of hemodynamic compromise secondary to fluid shifts the patient can be safely discharged home with close primary care and hepatology follow-up. ER COURSE: The patient did not have a fluid pocket for successful paracentesis. It was not attempted. The patient requires more time. She will be discharged. The patient does have peripheral edema that is consistent with her cirrhosis. Compression stockings advised. I kept the patient and/or family informed of laboratory and diagnostic imaging results throughout the emergency room course. DISPOSITION PLAN: We discussed follow up with the patient's primary care doctor within 24 to 48 hours as needed. We also discussed return to the emergency room for worsening symptoms or worsening condition. Discharge Medications: None Departure Diagnosis: Primary Impression: Ascites Ascites type: due to alcoholic cirrhosis Qualified Code: K70.31 - Ascites due to alcoholic cirrhosis Additional Impression: Peripheral edema Condition: Stable Patient Instructions: Ascites, Peripheral Edema, Bilateral Additional Instructions: Return to the emergency room for worsening abdominal swelling. MOISE LUBIN MD Feb 06, 2017 09:12
[2017-02-06 09:15] VITALS: BP 128/72; PULSE 74; RESP 16; TEMP 98.3
--- NOTE | 2017-02-06 10:56 | RADRPT ---
PROCEDURE: Abdominal ultrasound CLINICAL INDICATION: Abdominal pain and distension TECHNIQUE: Axial and longitudinal rios scale images of the four abdominal quadrants COMPARISON: None FINDINGS: Four quadrant abdominal ultrasound demonstrate small ascites. This is insufficient for paracentesis at this time. IMPRESSION: Small ascites RPTAT: HH .Johnathan Peterson MD, Date Time Electronically viewed and signed by .Johnathan Peterson MD, on 02/06/2017 10:55 .W/
== END 2017-02-06 09:19 | disposition home or self-care (01) ==
LOC: E/R 08:08
DX: K70.31 Alcoholic cirrhosis of liver with ascites (principal); R60.0 Localized edema; F17.210 Nicotine dependence, cigarettes, uncomplicated
CPT/HCPCS: 76705; Z7502

== ENCOUNTER 2017-02-16 10:47 | Emergency (ER) | payer OTHER ==
[~2017-02-16] VITALS: Ht 160 cm; Wt 75.0 kg
[2017-02-16 10:53] VITALS: Ht 160 cm; Wt 75.0 kg
[2017-02-16] MEDS ORDERED: LEVO25TA53 PO ×2 (12:51→16:12)
--- NOTE | 2017-02-16 15:05 | ERA ---
ER Documentation Chief Complaint Date/Time DATE: 02/16/17 TIME: 15:04 Chief Complaint pt bib self with c/o abd pain starting yesterday HPI The patient is a 51-year-old female, presenting with recurrent abdominal distention for 1 day, she has similar symptoms previously from recurrent ascites requiring paracentesis. Her last abdominal paracentesis was about 17 days ago she also had chronic bilateral leg edema. She denies fever, chills, neck pain, chest pain, dyspnea, vomiting, dysuria, diarrhea. She does not drink anymore, smokes socially Past medical history: Hypertension, cirrhosis, history of ascites Past surgical history: Frequent Paracentesis ROS All systems reviewed and are negative except as per history of present illness. Medications Home Meds Reported Medications Lactulose* (Lactulose*) 10 Gm/15 Ml Solution, 45 ML PO QID, ML 02/16/17 Furosemide* (Furosemide*) 40 Mg Tablet, 40 MG PO DAILY, TAB 02/16/17 Spironolactone* (Spironolactone*) 100 Mg Tablet, 100 MG PO DAILY, TAB 02/16/17 Levothyroxine Sodium* (Levothyroxine Sodium*) 25 Mcg Tablet, 25 MCG PO BEFORE BREAKFAST, #30 TAB 02/16/17 Discontinued Reported Medications Diclofenac Sodium* (Diclofenac Sodium*) 75 Mg Tablet.dr, 75 MG PO BID, #60 TAB 02/16/17 Levothyroxine Sodium* (Levothyroxine Sodium*) 25 Mcg Tablet, 25 MCG PO BEFORE BREAKFAST, #30 TAB 02/16/17 Spironolactone* (Spironolactone*) 100 Mg Tablet, 100 MG PO DAILY, TAB 01/14/17 Furosemide* (Furosemide*) 40 Mg Tablet, 40 MG PO DAILY, TAB 01/14/17 Discontinued Scripts Lactulose* (Lactulose*) 20 Gm/30 Ml Solution, 20 GM PO BID, #60 ML Prov:VARSHA DANIELS V. THERAPIST OCCUPATIONAL 01/29/17 Allergies Allergies: Coded Allergies: No Known Allergy (Unverified , 02/16/17) PMhx/Soc History of Surgery: No Anesthesia Reaction: No Hx Neurological Disorder: No Hx Respiratory Disorders: No Hx Cardiac Disorders: Yes (CHF?) Hx Psychiatric Problems: Yes (BIPOLAR) Hx Miscellaneous Medical Probl: Yes (liver cirrhosis -paracentesis 01/14/17, Hep. C) Hx Alcohol Use: Yes ([facility] November 2016) Hx Substance Use: No Hx Tobacco Use: Yes (cigarette 2sticks/day 01/26/17) Physical Exam Vitals Vital Signs Date Time Temp Pulse Resp B/P Pulse Ox O2 Delivery O2 Flow Rate FiO2 02/16/17 17:35 98.2 82 20 93/76 100 Room Air 02/16/17 10:53 98.1 100 20 131/92 95 Physical Exam Const: No acute distress. Head: Atraumatic. Eyes: Normal Conjunctiva. ENT: Normal External Ears, Nose and Mouth. Neck: Full range of motion. No meningismus. Resp: Clear to auscultation bilaterally. Cardio: Regular rate and rhythm. Abd: Soft, Ascites, normal bowel sounds, Vague/ diffuse abdominal tenderness Skin: No petechiae or rashes. Back: No midline or flank tenderness. Ext: Bilateral leg edema, no calf tenderness Neur: Awake and alert. No focal deficit Psych: Normal Mood and Affect. Result Diagram: 02/16/17 1442 02/16/17 1442 Results 24 hrs Laboratory Tests Test 02/16/17 14:42 White Blood Count 5.810^3/ul Red Blood Count 4.4910^6/ul Hemoglobin 14.3g/dl Hematocrit 41.9% Mean Corpuscular Volume 93.3fl Mean Corpuscular Hemoglobin 31.8pg Mean Corpuscular Hemoglobin Concent 34.1g/dl Red Cell Distribution Width 16.0% Platelet Count 33442^3/UL Mean Platelet Volume 10.7fl Neutrophils % 75.7% Lymphocytes % 12.9% Monocytes % 9.7% Eosinophils % 0.7% Basophils % 0.5% Nucleated Red Blood Cells % 0.0/100WBC Neutrophils # 4.410^3/ul Lymphocytes # 0.710^3/ul Monocytes # 0.610^3/ul Eosinophils # 0.010^3/ul Basophils # 0.010^3/ul Nucleated Red Blood Cells # 0.010^3/ul Prothrombin Time 15.2Sec Prothrombin Time Ratio 1.2 INR International Normalized Ratio 1.19 Activated Partial Thromboplast Time 30.8Sec Sodium Level 133mmol/L Potassium Level 3.4mmol/L Chloride Level 98mmol/L Carbon Dioxide Level 26mmol/L Anion Gap 12 Blood Urea Nitrogen 11mg/dl Creatinine 0.79mg/dl Glucose Level 98mg/dl Calcium Level 8.4mg/dl Total Bilirubin 1.9mg/dl Direct Bilirubin 0.00mg/dl Indirect Bilirubin 1.9mg/dl Aspartate Amino Transf (AST/SGOT) 69IU/L Alanine Aminotransferase (ALT/SGPT) 53IU/L Alkaline Phosphatase 208IU/L Total Protein 8.1g/dl Albumin 3.6g/dl Globulin 4.50g/dl Albumin/Globulin Ratio 0.80 Lipase 264U/L Current Medications Medications (Trade) Dose Ordered Sig/Charles Route PRN Reason Start Time Stop Time Status Last Admin Dose Admin Potassium Chloride (Klor-Con 20) 40 meq ONCE STAT PO 02/16/17 16:15 02/16/17 16:16 DC 02/16/17 17:19 Lidocaine (Xylocaine 1% (Mpf)) 5 ml STK-MED ONCE .ROUTE 02/16/17 16:31 02/16/17 16:32 DC Lactulose (Enulose) 30 gm ONCE ONCE PO 02/16/17 17:00 02/16/17 17:01 DC 02/16/17 17:20 Procedures/[place] [id number] Radiology Main Line: [phone] DIAGNOSTIC IMAGING REPORT Patient: [address]UL [address] : 1965 Age: 51 Sex: F MR #: [id number] DOS: 02/16/17 [facility] Ordering MD: KELLY YANCEY MD Location: E/R Room/Bed: PROCEDURE: Ultrasound guided paracentesis. CLINICAL INDICATION: Ascites and shortness of breath. COMPARISON: No prior studies are available for comparison. TECHNIQUE: The risks, benefits, and alternatives were explained to the patient and/or the patient's family, including but not limited to bleeding, infection, pain, visceral or vascular damage, shock, and . The patient and/or the patient' s family understood the risks and the alternatives and wished to proceed with the procedure. Informed written consent was obtained. A procedural time out was performed. The patient's name, date of , and procedure to be performed were verified. Utilizing ultrasound guidance, optimal location for entry to the peritoneal cavity was ascertained. The overlying skin was prepped and draped in the usual sterile fashion. Approximately 10 ml of 1% Xylocaine was injected locally for pain control. Using ultrasound guidance, an 8 [place] catheter was introduced into the peritoneal cavity in the right lower quadrant without difficulty. FINDINGS: Initial images demonstrate ascites. Approximately 3.7 liters of serous fluid was aspirated and discarded. The patient tolerated the procedure well without complication. IMPRESSION: 1. Successful ultrasound-guided paracentesis. RPTAT: QQ .Carlitos Calle MD, MD Date Time Electronically viewed and signed by .Carlitos Calle MD, MD on 02/16/2017 16:22 .R/ CC: KELLY YANCEY MD MEDICAL MAKING DECISION: The patient is a 51-year-old female, presenting with recurrent ascites, acute hypokalemia. She was treated potassium chloride 40 mg p.o. for her acute hypokalemia and given her normal dose of lactulose 45 mL p.o. she had abdominal paracentesis that removed about 3.7 L spontaneous relief. The differential diagnoses considered include but are not limited to cholelithiasis, cholecystitis, cystitis, pancreatitis, hepatitis, gastritis, peptic ulcer disease, gastric ulcer, appendicitis, diverticulitis, cholangitis, choledocholithiasis, partial small bowel obstruction. Departure Diagnosis: Primary Impression: Ascites Additional Impressions: Peripheral edema Hypokalemia Condition: Good Comments I discussed the findings with the patient. I advised the patient to follow-up with the primary physician in about 1-2 days, sooner if needed and return if any concern. The patient's blood pressure was elevated (>120/80) but appears stable without evidence of hypertension emergency or urgency. The patient was counseled about the risks of hypertension and urged to pursue outpatient monitoring and therapy within a week with their primary care physician. KELLY YANCEY MD Feb 16, 2017 15:05
[2017-02-16 15:38] LABS: BASOPHILS % 0.5 % (0.0-2.0); EOSINOPHILS % 0.7 % (0.0-7.0); HEMATOCRIT 41.9 % (37.0-47.0); HEMOGLOBIN 14.3 g/dl (12.0-16.0); LYMPHOCYTES # 0.7 10^3/ul (0.8-2.9); LYMPHOCYTES % 12.9 % (15.0-51.0); MEAN CORPUSCULAR HEMOGLOBIN 31.8 pg (29.0-33.0); MEAN CORPUSCULAR HGB CONC 34.1 g/dl (32.0-37.0); MEAN CORPUSCULAR VOLUME 93.3 fl (82.0-101.0); MEAN PLATELET VOLUME 10.7 fl (7.4-10.4); MONOCYTE # 0.6 10^3/ul (0.3-0.9); MONOCYTES % 9.7 % (0.0-11.0); NEUTROPHIL # 4.4 10^3/ul (1.6-7.5); NEUTROPHILS % 75.7 % (39.0-77.0); PLATELET COUNT 141 10^3/UL (140-415); RED BLOOD COUNT 4.49 10^6/ul (4.20-5.40); WHITE BLOOD COUNT 5.8 10^3/ul (4.8-10.8)
[2017-02-16 15:54] LABS: INR 1.19; PROTIME 15.2 Sec (12.2-14.2); PT RATIO 1.2
[2017-02-16 15:55] LABS: PARTIAL THROMBOPLASTIN TIME 30.8 Sec (25.0-35.0)
[2017-02-16 15:57] LABS: ALBUMIN 3.6 g/dl (3.3-4.9); ALBUMIN/GLOBULIN RATIO 0.8; BILIRUBIN,INDIRECT 1.9 mg/dl (0-1.1); BILIRUBIN,TOTAL 1.9 mg/dl (0.2-1.3); CALCIUM 8.4 mg/dl (8.4-10.2); CREATININE 0.79 mg/dl (0.44-1.00); POTASSIUM 3.4 mmol/L (3.5-5.1); TOTAL PROTEIN 8.1 g/dl (6.1-8.1)
[2017-02-16] MEDS ORDERED: DICL75TA2 PO (16:04)
[2017-02-16] MEDS ORDERED: SPIR100T31 PO (16:12)
[2017-02-16] MEDS ORDERED: FURO40TA4 PO (16:13)
[2017-02-16] MEDS ORDERED: LACT10SO5 PO (16:15)
[2017-02-16] MEDS ORDERED: POTASSIUM CHLORIDE (SR) 20 MEQ TAB PO STA (16:15)
--- NOTE | 2017-02-16 16:22 | RADRPT ---
PROCEDURE: Ultrasound guided paracentesis. CLINICAL INDICATION: Ascites and shortness of breath. COMPARISON: No prior studies are available for comparison. TECHNIQUE: The risks, benefits, and alternatives were explained to the patient and/or the patient's family, inc luding but not limited to bleeding, infection, pain, visceral or vascular damage, shock, and . The patient and/or the patient's family understood the risks and the alternatives and wished to pro ceed with the procedure. Informed written consent was obtained. A procedural time out was performed . The patient's name, date of , and procedure to be performed were verified. Utilizing ultrasound guidance, optimal location for entry to the peritoneal cavity was ascertained. The overlying skin was prepped and draped in the usual sterile fashion. Approximately 10 ml of 1% Xylocaine was injected locally for pain control. Using ultrasound guidance, an 8 [place] catheter wa s introduced into the peritoneal cavity in the right lower quadrant without difficulty. FINDINGS: Initial images demonstrate ascites. Approximately 3.7 liters of serous fluid was aspirated and disc arded. The patient tolerated the procedure well without complication. IMPRESSION: 1. Successful ultrasound-guided paracentesis. RPTAT: QQ .Carlitos Calle MD, Date Time Electronically viewed and signed by .Carlitos Calle MD, on 02/16/2017 16:22 .R/
[2017-02-16] MEDS ORDERED: LIDOCAINE 1% (MPF) 5 ML VIAL ONE (16:31)
[2017-02-16] MEDS ORDERED: LACTULOSE 30ML CUP PO ONE (17:00)
[2017-02-16 17:35] VITALS: BP 93/76; PULSE 82; RESP 20; TEMP 98.2
== END 2017-02-16 17:40 | disposition home or self-care (01) ==
LOC: E/R 10:47
DX: R18.8 Other ascites (principal); E87.6 Hypokalemia; I10 Essential (primary) hypertension; F17.210 Nicotine dependence, cigarettes, uncomplicated
CPT/HCPCS: 36415; 80053; 83690; 85025; 85610; 85730; Z7502; Z7610